=== PATIENT | female | born 1980 | race Caucasian/White ===

== ENCOUNTER 2017-10-30 03:38 | Emergency (ER) | payer MEDICAID ==
[2017-10-30 04:05] VITALS: BP 124/83
--- NOTE | 2017-10-30 04:48 | EDM.PDOC ---
ED HPI GENERAL MEDICAL PROBLEM - General Chief Complaint: General Stated Complaint: TICK BITE Time Seen by Provider: 10/30/17 04:43 Source of Information: Reports: Patient History Limitations: Reports: No Limitations - History of Present Illness INITIAL COMMENTS - FREE TEXT/NARRATIVE: This lady was bitten on the left elbow or forearm on about October 16. She thinks the tick was attached for about 30 hours. Today she has some vague complaints such as left hand pain (in palm) headache behind left eye, shooting pain in left forearm and feels sweaty and clammy. She never had a rash. She is worried about Lyme disease. She is . left hand Pain Score (Numeric/FACES): 3 left eye Pain Score (Numeric/FACES): 3 - Related Data Allergies Allergy/AdvReac Type Severity Reaction Status Date / Time codeine Allergy Itching Verified 10/30/17 03:55 Home Meds: Home Meds Pnv with Ca,No.72/Iron/Fa [Pnv Plus Multivit Tab] 1 tab PO DAILY [History] Past Medical History HEENT History: Reports: Impaired Vision [employer] History: Reports: - Infectious Disease History Infectious Disease History: Reports: Chicken Pox - Past Surgical History HEENT Surgical History: Reports: Tonsillectomy Female Surgical History: Reports: Cystectomy Social & Family History - Tobacco Use Smoking Status *Q: Never Smoker - Caffeine Use Caffeine Use: Reports: None - Recreational Drug Use Recreational Drug Use: No ED ROS GENERAL - Review of Systems Review Of Systems: See Below Constitutional: Reports: Other (hpi) HEENT: Reports: No Symptoms Cardiovascular: Reports: Palpitations GI/Abdominal: Reports: No Symptoms : Reports: No Symptoms Musculoskeletal: Reports: Hand Pain Skin: Reports: No Symptoms Neurological: Reports: Headache Psychiatric: Reports: No Symptoms ED EXAM, GENERAL - Physical Exam Exam: See Below Exam Limited By: No Limitations General Appearance: Alert, WD/WN, No Apparent Distress Eye Exam: Bilateral Eye: Normal Inspection Throat/Mouth: Normal Inspection Head: Atraumatic Neck: No: Lymphadenopathy (R), Lymphadenopathy (L) Respiratory/Chest: Lungs Clear Cardiovascular: Regular Rate, Rhythm, No Murmur Extremities: Normal Inspection Neurological: Alert, Oriented Skin Exam: Warm, Dry, Intact Course - Vital Signs Last Recorded V/S: Last Vital Signs Temp 36.3 C 10/30/17 04:05 Pulse 76 10/30/17 04:05 Resp 16 10/30/17 04:05 BP 124/83 10/30/17 04:05 Pulse Ox 95 10/30/17 04:05 Departure - Departure Time of Disposition: 04:48 Disposition: Home, Self-Care 01 Clinical Impression: Lyme disease - Discharge Information Referrals: PCP,None [Primary Care Provider] - Additional Instructions: You have some very vague symptoms but because you were bitten by a tick you are being started on amoxicillin. The testing for Lyme disease and other tick- borne illnesses is complicated and negative results this early after exposure can't rule out disease. Therefore you should begin the amoxicillin 500 mg 3 times daily for 14 days but should followup with your doctor within the next week to decide if you should continue the antibiotics for a longer period of time and when or if testing is needed.
== END 2017-10-30 05:08 | disposition home or self-care (01) ==
LOC: JP.ED 03:38
DX: A69.20 Lyme disease, unspecified (principal); Z88.5 Allergy status to narcotic agent; Z79.899 Other long term (current) drug therapy
CPT/HCPCS: 99282

== ENCOUNTER 2021-08-05 12:31 | Inpatient (IN) | payer MEDICAID ==
[2021-08-05] MEDS ORDERED: Oxytocin 10 Units/1 ML SDV ONE (12:46)
[2021-08-05] MEDS ORDERED: Oxytocin 10 Units/1 ML SDV IM ONE (12:49)
[2021-08-05] MEDS ORDERED: Lactated Ringers 1,000 ML IV ONE (15:08)
[2021-08-05 15:31] VITALS: BP 113/59; PULSE 93
== END 2021-08-05 16:45 | disposition home or self-care (01) | DRG 806 ==
LOC: JP.OBCHECK 12:31 → JP.OB 12:32 → JP.OBCHECK 12:37 → JP.OB 12:54
PROVIDERS: ADMIT Nurse Practitioner Family; ATTEND Nurse Practitioner Family
PROC: 10E0XZZ Delivery of Products of Conception, External Approach (ICD-10-PCS; principal; 2021-08-05)
PROC: 10907ZC Drainage of Amniotic Fluid, Therapeutic from Products of Conception, Via Natural or Artificial Opening (ICD-10-PCS; 2021-08-05)
DX: O72.1 Other immediate postpartum hemorrhage (principal); D62 Acute posthemorrhagic anemia; Z37.0 Single live birth; Z3A.38 38 weeks gestation of pregnancy; O99.02 Anemia complicating childbirth
CPT/HCPCS: 99211; J2590; J7120